=== PATIENT | female | born 1955 | race African-American/Black ===

== ENCOUNTER 2024-07-10 16:37 | Emergency (ER) | payer OTHER ==
[~2024-07-10] VITALS: Ht 152.4 cm; Wt 56.0 kg
[2024-07-10 17:10] VITALS: O2SAT 99
[2024-07-10] MEDS: LIDOCAINE HCL/EPINEPHRINE 1%-EPI 1:100,000 20ML VIAL INFIL ONE (18:24)
[2024-07-10] MEDS: HYDROCODONE/ACETAMINOPHEN 5/325MG TABLET PO ONE (18:24)
[2024-07-10] MEDS ORDERED: IBUP-2029 MT (19:28)
[2024-07-10] MEDS ORDERED: CEPH500C2 MT (19:28)
[2024-07-10 20:39] VITALS: BP 132/78; PULSE 76; RESP 18; TEMP 37.00296; O2SAT 99
== END 2024-07-10 20:45 | disposition home or self-care (01) ==
LOC: ER 16:37
DX: L02.212 Cutaneous abscess of back [any part, except buttock and flank] (principal); I10 Essential (primary) hypertension
CPT/HCPCS: 99283; 10060; J3490